=== PATIENT | female | born 1970 | race Caucasian/White ===

== ENCOUNTER 2019-08-12 12:52 | Inpatient (IN) ==
[2019-08-12 13:40] LABS: BE 2.1 mmoll (-3.0-3.0); BLOOD TYPE ARTERIAL; HCO3-(ACT) 26.6 mmoll (20.0-26.0); METHB 1.1 % (0.0-1.5); O2HB 96.5 % (95.0-99.0); PCO2(98.6) 47 mmHg (35-45); PO2(98.6) 124 mmHg (60-100); SAMPLE BLOOD; SAO2 99.5 % (95.0-100.0); THB 12.4 g/dL (11.5-17.4); pH(98.6) 7.38 (7.35-7.45)
[2019-08-12 13:41] LABS: BASO# 0.02 X1000 (0.0-0.2); BASO% 0.2 % (0.0-0.8); HEMATOCRIT 37.2 % (37.0-47.0); HEMOGLOBIN 12.2 g/dL (12.0-16.0); IMM GRAN# 0.01 X1000 (0.0-0.04); IMM GRAN% 0.1 % (0.0-0.5); LYMPH# 0.84 X1000 (1.2-3.4); LYMPH% 10.3 % (20.5-51.1); MCH 28.4 PG (27-31); MCHC 32.8 g/dL (33-37); MCV 86.5 FL (81-99); MONO# 0.63 X1000 (0.11-0.59); MONO% 7.8 % (1.7-9.3); MPV 12.6 FL (7.4-10.4); NEUT# 6.62 X1000 (1.4-6.5); NEUT% 81.6 % (42.2-75.2); PLT 243 X1000 (130-400); RDW 12.7 % (11.5-14.5); WBC 8.12 X1000 (4.8-10.8)
[2019-08-12 13:43] LABS: ALLEN TEST YES; MODALITY CANNULA
--- NOTE | 2019-08-12 13:48 | EKG Report ---
Test Performed on : 08/12/2019 1:07:04 PM Test Reason : od Blood Pressure : / mmHG Vent. Rate : 087 BPM Atrial Rate : 087 BPM P-R Int : 148 ms QRS Dur : 074 ms QT Int : 354 ms P-R-T Axes : 035 013 060 degrees QTc Int : 425 ms Normal sinus rhythm. Normal ECG No previous ECGs available Unconfirmed Result
[2019-08-12 13:53] LABS: ACETAMINOPHEN < 1.2 ug/mL (10-30); AGAP 13; ALBUMIN 4.6 g/dL (3.5-5.0); ALKALINE PHOSPHATASE 86 U/L (32-104); BUN 12 mg/dL (8-22); CALCIUM 9.2 mg/dL (8.8-10.2); CHLORIDE 102 mmol/L (98-107); COSMO 278; CREATININE 0.5 mg/dL (0.5-0.9); ESTIMATED GFR > 60; GLUCOSE 111 mg/dL (70-104); GOT 303 U/L (10-30); GPT 209 U/L (10-36); POTASSIUM 4.6 mmol/L (3.5-5.1); SALICYLATES < 3.00 mg/dL (3-10); SODIUM 139 mmol/L (136-145); TCO2 24 mmol/L (25-35); TOTAL PROTEIN 7.1 g/dL (6.3-8.3); UR AMPHETAMINES QUAL NONE DETECTED (NONE DETECT); UR BARBITUATES QUAL NONE DETECTED (NONE DETECT); UR BENZODIAZEPIN QUAL NONE DETECTED (NONE DETECT); UR CANNABINOIDS QUAL NONE DETECTED (NONE DETECT); UR COCAINE QUAL NONE DETECTED (NONE DETECT); UR METHADONE QUAL NONE DETECTED (NONE DETECT); UR METHAMPHETAMINE QUAL NONE DETECTED (NONE DETECT); UR OPIATES QUAL NONE DETECTED (NONE DETECT); UR OXYCODONE QUAL NONE DETECTED (NONE DETECT); UR PCP QUAL NONE DETECTED (NONE DETECT); UR PROPOXYPHENE QUAL NONE DETECTED (NONE DETECT); UR TCA QUAL PRESUMPTIVE POSITIVE (NONE DETECT)
--- NOTE | 2019-08-12 13:53 | PROVIDER DOCUMENTATION ---
This chart was entered by Aida Galvin Scribe, acting as scribe for Pa Feng MD. [id number] Abuse/Overdose - General Stated Complaint: OVERDOSE Time Seen by Provider: 08/12/19 12:58 Source: patient, EMS (first response) Unable to obtain history due to:: altered Allergies/Adverse Reactions: Allergies Allergy/AdvReac Type Severity Reaction Status Date / Time Penicillins AdvReac ANAPHYLAXIS Verified 08/12/19 20:51 Home Medications: Home Medication List Medication Instructions Recorded Confirmed Last Taken Type Celecoxib [Celebrex] 200 mg PO DAILY 08/12/19 08/12/19 08/11/19 09:00 History Cetirizine HCl [Zyrtec] 10 mg PO DAILY 08/12/19 08/12/19 08/11/19 09:00 History Multivitamin [Multi-Vitamin Daily] 1 ea PO DAILY 08/12/19 08/12/19 08/11/19 09:00 History Omeprazole 40 mg PO DAILY 08/12/19 08/12/19 08/11/19 09:00 History Venlafaxine HCl [Effexor Xr] 75 mg PO DAILY 08/12/19 08/12/19 08/11/19 09:00 History Vitamin B Complex 1 ea PO DAILY 08/12/19 08/12/19 08/11/19 09:00 History - History of Present Illness-Drug/Alcohol Nature of Presenting Problem: 48 yowf presents to the ed with positive suicide attempt at midnight last night. pt left x10 suicide notes, clothes laid out to be buried in, money for lawn care and was found by her and had pill bottles scattered around her. pt reports this is her first time to attempt suicide. per ems pt took x28 Zolpiden 10mg/x50 Tramadol 50mg/unknown amount of Flexril last night at 1200 after having an argument with her This episode of drinking or use began:: last night (1200am) Severity: reports: severe Situational problems related to:: reports: significant other (argument with ) Psychiatric Complaints: reports: depressed, suicidal ideation. denies: homicidal thoughts Associated Symptoms: reports: denies symptoms Any injuries associated with this episode of intoxication?: No Similar Symptoms Previously?: No Recently seen or treated by another doctor?: No - Substance Abuse Substance Use: reports: denies - Overdose Intentional drug overdose?: Yes List substance(s) ingested.: x28 Zolpiden 10mg/x50 Tramadol 50mg/unknown amount of Flexril How did the ingestion/other suicidal act come to attention?: found pt with medication bottles around her and suicide notes x10 Suicide Risk Assessment: organized plan, frightened friends-family. negative: prior attempt, drug or ETOH abuse, rational thought loss (hallucinations), chronic illness Clinician's estimation of suicide risk?: high risk Review of Systems - Adult - REVIEW OF SYSTEMS - ADULT ROS:: limited per condition Constitutional: reports: no symptoms reported Eyes: reports: no symptoms reported Ears, Nose, Mouth & Throat: reports: no symptoms reported Cardiovascular: denies: chest pain, palpitations Respiratory: denies: cough, shortness of breath, wheezing Gastrointestinal: denies: diarrhea, nausea, vomiting Genitourinary: reports: no symptoms reported Musculoskeletal: denies: back pain, neck pain Integumentary: reports: no symptoms reported Neurological: reports: no symptoms reported Psychiatric: reports: see HPI, suicidal thoughts Endocrine: reports: no symptoms reported Hematologic/Lymphatic: reports: no symptoms reported Allergic/Immunologic: reports: no symptoms reported All Other Systems: Reviewed and Negative Past History - Adult - PAST MEDICAL HISTORY-ADULT Review of Records: reports: Old Records Reviewed, Nursing Assessment Review, Medications Reviewed, Social history reviewed & non-contributory. Major Childhood Illnesses: reports: denies history Cardiovascular: reports: denies history Respiratory: reports: denies history Gastrointestinal: reports: denies history Obstetrical/Gynecological: reports: denies history Genitourinary: reports: denies history Musculoskeletal: reports: denies history Neurological: reports: denies history Endocrine/Immune: reports: denies history Other Conditions: reports: denies history - PRIOR SURGERIES/PROCEDURES Surgical/Procedure History: reports: cholecystectomy - IMMUNIZATION STATUS Childhood Immunizations: See Nurse Assessment Flu Vaccine: See Nurse Assessment - FAMILY HISTORY Family History: reviewed, not pertinent - SOCIAL HISTORY Smoking: denies Substance Use: alcohol Alcohol Use Frequency: 3-4 times a week Number of drinks per typical drinking period:: 3-4 drinks Living Situation: family Physical Exam-General - PHYSICAL EXAM-ADULT Exam Limited by: pt is lethargic, slow to answer with +overdose for suicide attempt Initial Vital Signs Reviewed: Yes - CONSTITUTIONAL General Appearance: obese, lethargic, slow to respond - HEAD, EARS, NOSE, MOUTH & THROAT HENMT: moist mucous membranes - NECK Neck: normal inspection - RESPIRATORY Respiratory: chest non-tender, lungs clear, normal breath sounds - CARDIOVASCULAR Cardiovascular: normal peripheral pulses, regular rate, rhythm - CHEST (BREASTS) Chest/Breast: deferred - GASTROINTESTINAL (ABDOMEN) Abdominal Exam: non tender, soft - GENITOURINARY Female Genitalia/Pelvic Exam: deferred Rectal Exam: deferred Hemoccult Exam: deferred - LYMPHATIC Lymphatic: no adenopathy - MUSCULOSKELETAL Back Exam: no CVA tenderness, no vertebral tenderness Extremity: normal capillary refill - SKIN Integumentary: warm/dry, pallor - PSYCHIATRIC Psych/Mental Status: other (slow to answer question with mumbling speech) Progress - PLAN OF CARE/RESULTS Progress/Plan/Lab Results: Orders Category Date Time Status Admit - [facility] Routine AdmDCTranf 08/12/19 17:26 Active NEWS Score >or=5:Order NEWS Bundle S.O. NOW Care 08/12/19 13:39 Completed Neurological Check Q 4-HR ASSESS Care 08/12/19 17:26 Active Vital Signs Order Q 8-HR .ASSESS Care 08/12/19 17:26 Active Z-Document. for Tele Applied ORDERED Care 08/12/19 17:26 Completed US GB < RUQ (LIMITED) [US] Routine Exams 08/12/19 17:26 Completed cxr [CHEST-1 VIEW] [RAD] Stat Exams 08/12/19 13:19 Completed ABG [RESP] Routine Lab 08/12/19 13:22 Completed ACETAMINOPHEN [TDM] Stat Lab 08/12/19 12:59 Completed ACETAMINOPHEN [TDM] Urgent Lab 08/12/19 18:05 Completed ALCOHOL BLOOD Stat Lab 08/12/19 12:59 Completed CBC WITH DIFF [HEME] Routine Lab 08/13/19 04:57 Completed CBC WITH ELECTRONIC DIFF [HEME] Stat Lab 08/12/19 12:59 Completed COMPREHENSIVE METABOLIC PANEL [CHEM] Routine Lab 08/13/19 04:57 Completed COMPREHENSIVE METABOLIC PANEL [CHEM] Stat Lab 08/12/19 12:59 Completed HEPATITIS PROFILE [HH] Routine Lab 08/13/19 04:57 Completed LACTATE, PLASMA [CHEM] Lab 04/12/20 18:05 Completed LACTATE, PLASMA [CHEM] Lab 08/12/19 21:55 Completed LACTATE, PLASMA [CHEM] Q3H Lab 08/12/19 15:14 Completed SALICYLATES [TDM] Stat Lab 08/12/19 12:59 Completed URINE DRUG SCREEN PL Stat Lab 08/12/19 12:59 Completed Dextrose 5%-Water Inj [D5w] 1,000 ml Med 08/12/19 16:30 Active Sodium Bicarbonate 8.4% 150 meq IV 75 mls/hr Haloperidol Lactate [Haldol] Med 08/12/19 17:26 Active 2 mg IV Q4H PRN PRN Ondansetron [Zofran] Med 08/12/19 17:26 Active 4 mg IV Q4H PRN PRN Oxygen Device Routine Oth 08/12/19 17:26 Completed Telemetry [OM.EQ] Routine Oth 08/12/19 17:26 Active EKG [EKG] Stat Ther 08/12/19 13:19 Draft Transfer/Admit Order [TRANSFER] Routine Transfer 08/12/19 15:06 Completed Result Diagrams: 08/14/19 05:20 08/15/19 05:19 - REASSESSMENT Reassessment #1 Time Reassessed: 14:09 (pt is sleeping in bed and will wake to voice if spoken directly to her) Status: unchanged Reassessment #2 Time Reassessed: 15:20 (pt is sitting in bed drinking a dr pepper. pt will answer questions and stays awake longer period of times) Status: improving - EKG 1 Time of EKG reading by physician:: 13:07 EKG Read and Signed by:: Pa Feng EKG Interpretation (*Must complete 3 of following elements*): Normal Rate: 87 Rhythm: NSR [place]: normal QRS: normal FL Interval: normal ST Wave: normal - XRAY 1 XRAY: Bilateral XRAY Study: Chest Impression: See EMR Report (COMMENT: There is no evidence of acute cardiac or pulmonary disease and compared to 05/23/2014 there has been no significant change. IMPRESSION: Normal chest. Electronically signed by Collin Workman 08/12/2019 2:02 PM) - CONSULTS/PCP/HOSPITALIST Notification #1 *Consult/PCP/Hospitalist*: poision control called Time Discussed: 14:17 (watch and place on seizure watch) Reason/Comments: phone consult #2 Consult: hospitalist dr camacho Time Discussed: 15:02 Reason/Comments: OD +SI Consult Disposition: Will see in ED, Admit #3 Consult: hospitalist dr camacho Time Discussed: 15:19 Reason/Comments: phone consult Departure - Departure Date of Disposition Decision: 08/12/19 Time of Disposition Decision: 15:07 DIAGNOSIS: Suicide attempt Overdose Qualifiers: Encounter type: initial encounter Injury intent: intentional self-harm Qualified Code(s): T50.902A - Poisoning by unspecified drugs, medicaments and biological substances, intentional self-harm, initial encounter Disposition: PSYCHIATRIC HOSPITAL/[facility] Certified Medical Emergency: Emergent Condition: Serious - Critical Care Note This patient required my direct & personal management of CC.: No Total Time (mins): 35 Critical Care Statement: This patient required my direct personal management to treat or rule out processes, the absence of which, could potentiallly result in sudden, clinically significant life or limb threatening deterioration. Attestation - Physician/ MARIBELL Attestation Patient care was provided by Advanced Practice Provider:: No The physician spent face to face time with patient:: Yes Advanced Practice Provider documentation review:: Supervising physician onsite and consulted in the evaluation and care of this patient. The physician did have a face to face encounter with the patient. This chart was documented by the indicated scribe, (Aida Galvin Scribe) and accurately reflects the services I performed and decisions made by me, Pa Feng MD, as attested by the provider's signature.
--- NOTE | 2019-08-12 14:04 | Diag Imaging Result Doc PS360 ---
EXAM: CHEST-1 VIEW 08/12/2019 HISTORY: od TECHNIQUE: Erect AP portable at 1348 COMMENT: There is no evidence of acute cardiac or pulmonary disease and compared to 05/23/2014 there has been no significant change. IMPRESSION: Normal chest. Electronically signed by Collin Workman 08/12/2019 2:02 PM
--- NOTE | 2019-08-12 16:45 | HISTORY AND PHYSICAL ---
CHIEF COMPLAINT: Drug overdose. HISTORY OF PRESENT ILLNESS: This is a 48-year-old female. Unclear what her primary medical problems are but she came in with a suicidal gesture. Reportedly took supposedly 50 tramadol which was extended release and 28 Ambien, and an unknown amount of Flexeril. This was around 12 a.m. She left multiple suicide notes, clothes laid out. She was found by her and had the pill bottles scattered around her. This is a first attempt apparently. It is not clear that these medications are her own medications but in any case, the patient came in. She was very lethargic. I do not think she has gotten any reversal medications. Poison Control has been contacted. Recommended monitoring, an EKG, and things of that nature but she will be admitted for drug overdose and suicidal ideation. She is still very lethargic. She is arousable. She is breathing at a stable level but she is still extremely lethargic. She does not have history of depression but she does drink 3 to 4 beers a week. PAST MEDICAL HISTORY: I do not think she has any major issues. PAST SURGICAL HISTORY: She reports cholecystectomy, she reports a cervical neck surgery. SOCIAL HISTORY: No tobacco. Again, ethanol about 3 to 4 drinks a week. She lives with her with whom she had recently argued. ALLERGIES: No known drug allergies. MEDICATIONS: None recorded. REVIEW OF SYSTEMS: Review of systems limited but otherwise negative. PHYSICAL EXAMINATION: VITAL SIGNS: Blood pressure 127/93, heart rate of 81, respiratory rate 15, temperature 97.7 degrees, 97% on 2 L. GENERAL: A well-developed female in no acute distress. HEAD, EYES, EARS, NOSE, AND THROAT: Head examination was normocephalic and atraumatic. Eye Examination: Pupils equal, round, reactive to light. Extraocular movements were intact. Ears, Nose, and Throat Examination: She had moist mucous membranes. NECK EXAMINATION: Supple. CARDIOVASCULAR: Regular rate and rhythm. PULMONARY: Bilateral breath sounds clear to auscultation. GI: Soft, nontender, nondistended. Bowel sounds were positive. NEUROLOGIC: Examination was limited but there were no issues. LABORATORY DATA: White count 8, hemoglobin and hematocrit 12 and 37, platelets 243,000. PH 7.38, pCO2 of 47, PaO2 of 124. AST and ALT of 303 and 209. Tricyclics positive. ASSESSMENT: 1. This is a 48-year-old female coming in with suicidal gesture and drug overdose with acute hepatitis or transaminitis following drug overdose. We will continue to monitor and see how she does. Repeat her labs in the morning and monitor closely. 2. Elevated liver enzymes which may be a toxicity issue. All her liver tests and everything are negative. We will check a hepatitis screen, and trend her enzymes and repeat them in a little bit. 3. Tricyclic overdose. We will put her on a bicarbonate drip to increase alkalinity of the urine and help with excretion of TCA. 4. Suicidal gesture. We will get evaluation by psychiatry once she stabilizes. cc: Aj Lutz MD
[2019-08-12] MEDS ORDERED: D5W 1,000 ML ONE (17:03)
[2019-08-12] MEDS ORDERED: SODIUM BICARBONATE 8.4% ONE ×2 (17:05→17:26)
[2019-08-12] MEDS ORDERED: ZOFRAN IV PRN (17:26)
[2019-08-12] MEDS ORDERED: HALDOL IV PRN (17:26)
[2019-08-12] MEDS: SODIUM BICARBONATE 8.4% 150 MEQ in D5W 1,000 ML IV SCH (17:45)
[2019-08-12 20:01] LABS: URINE SOURCE CATH
[2019-08-12 20:03] LABS: BILIRUBIN URINE NEGATIVE (NEGATIVE); BLOOD URINE NEGATIVE (NEGATIVE); COLOR YELLOW; GLUCOSE URINE NEGATIVE (NEGATIVE); KETONE URINE NEGATIVE (NEGATIVE); LEUKOCYTES URINE NEGATIVE (NEGATIVE); NITRITE URINE NEGATIVE (NEGATIVE); PH URINE 5.5; PROTEIN URINE NEGATIVE (NEGATIVE); SP GRAVITY URINE 1.023; TURBIDITY URINE CLEAR (CLEAR); UROBILINOGEN URINE NORMAL (NORMAL)
[2019-08-12 20:04] LABS: UR EPITHELIAL CELLS <10 /HPF (<10); URINE BACTERIA NEGATIVE /HPF; URINE RBC <10 /HPF (<10); URINE WBC <10 /HPF (<10)
--- NOTE | 2019-08-12 20:17 | Diag Imaging Result Doc PS360 ---
EXAM: US GB < RUQ (LIMITED) 08/12/2019 HISTORY: elevated liver enzymes TECHNIQUE: Right upper quadrant ultrasound COMMENT: The visualized portions of the head and body of the pancreas are within normal limits. The aorta is normal in caliber where it is visible. There is very poor detail seen in the liver. There is antegrade flow in the portal vein. The right kidney is without evidence of hydronephrosis or mass. The gallbladder is surgically absent. There is no evidence of biliary dilatation the common bile duct measuring less than 4 mm. IMPRESSION: No definite evidence of acute disease. Electronically signed by Collin Workman 08/12/2019 8:15 PM
[2019-08-12 22:28] LABS: INR 0.97; PROTIME 13.4 Seconds (11.0-16.0)
[2019-08-12 22:31] LABS: CK INDEX 1.1 (0.0-2.5); CK-MB 30.89 ng/mL (0.0-5.0)
[2019-08-12] MEDS ORDERED: ACETADOTE IV ONE ×2 (23:17)
[2019-08-12] MEDS ORDERED: D5W IV ONE ×2 (23:17)
[2019-08-13] MEDS ORDERED: D5W IV ONE ×3 (00:30)
[2019-08-13] MEDS ORDERED: ACETADOTE IV ONE ×3 (00:30)
[2019-08-13 05:50] LABS: AGAP 9; ALBUMIN 3.6 g/dL (3.5-5.0); ALKALINE PHOSPHATASE 76 U/L (32-104); BUN 11 mg/dL (8-22); CALCIUM 8.5 mg/dL (8.8-10.2); CHLORIDE 99 mmol/L (98-107); COSMO 275; CREATININE 0.6 mg/dL (0.5-0.9); ESTIMATED GFR > 60; GLUCOSE 105 mg/dL (70-104); GOT 169 U/L (10-30); GPT 142 U/L (10-36); POTASSIUM 3.3 mmol/L (3.5-5.1); SODIUM 138 mmol/L (136-145); TCO2 30 mmol/L (25-35)
[2019-08-13 05:57] LABS: BASO# 0.02 X1000 (0.0-0.2); BASO% 0.3 % (0.0-0.8); EOS# 0.06 X1000 (0.0-0.7); EOS% 0.8 % (0.0-10.0); HEMATOCRIT 34.8 % (37.0-47.0); HEMOGLOBIN 11.1 g/dL (12.0-16.0); IMM GRAN# 0.01 X1000 (0.0-0.04); IMM GRAN% 0.1 % (0.0-0.5); LYMPH# 1.71 X1000 (1.2-3.4); LYMPH% 24.2 % (20.5-51.1); MCH 28.6 PG (27-31); MCHC 31.9 g/dL (33-37); MCV 89.7 FL (81-99); MONO# 0.69 X1000 (0.11-0.59); MONO% 9.7 % (1.7-9.3); MPV 12.6 FL (7.4-10.4); NEUT# 4.59 X1000 (1.4-6.5); NEUT% 64.9 % (42.2-75.2); PLT 213 X1000 (130-400); RBC 3.88 XMIL (4.2-5.4); RDW 12.9 % (11.5-14.5); WBC 7.08 X1000 (4.8-10.8)
[2019-08-13] MEDS: SODIUM BICARBONATE 8.4% 150 MEQ in D5W 1,000 ML IV SCH ×2 (08:28→23:23)
[2019-08-13] MEDS ORDERED: ATIVAN IV PRN (11:57)
--- NOTE | 2019-08-13 12:14 | PROGRESS NOTE ---
DATE: 08/13/2019 SUBJECTIVE: Patient has no major complaints. OBJECTIVE: Vital Signs: Blood pressure 112/42, heart rate of 68, respiratory rate of 18, temperature 98.3 degrees, satting 98% on 2 L. Cardiovascular: Regular rate and rhythm. Pulmonary: Bilateral breath sounds. Clear to auscultation. GI: Soft, nontender, nondistended. Bowel sounds are positive. LABORATORY DATA: White count 7, hemoglobin and hematocrit 11 and 34, platelets 213. Potassium 3.3. Her AST and ALT are down to 169 and 142. Presumably this is related to Ultram or tramadol toxicity. It is a little unclear, but we will see how things go. PROBLEM LIST: 1. Drug overdose. Mentally, she has improved. Her liver enzymes are improving. We will continue to monitor today. 2. Rhabdomyolysis. We will continue treatment with sodium bicarbonate and follow. 3. Elevated liver enzymes, acute hepatitis, likely related to toxicity from Ultram and possibly cyclobenzaprine. We will continue to monitor. 4. Disposition: She is stable. She will need psychiatric evaluation for suicidality. She may require inpatient psychiatric treatment. cc: Aj Lutz MD
[2019-08-13] MEDS: EFFEXOR XR PO SCH (12:36)
[2019-08-14 06:05] LABS: HEMATOCRIT 35.7 % (37.0-47.0); HEMOGLOBIN 11.3 g/dL (12.0-16.0); MCH 28.2 PG (27-31); MCHC 31.7 g/dL (33-37); RBC 4.01 XMIL (4.2-5.4); RDW 12.7 % (11.5-14.5); WBC 5.62 X1000 (4.8-10.8)
[2019-08-14] MEDS: PRILOSEC PO SCH (06:07)
[2019-08-14 06:36] LABS: AGAP 9; ALBUMIN 3.6 g/dL (3.5-5.0); ALKALINE PHOSPHATASE 71 U/L (32-104); BUN 5 mg/dL (8-22); CALCIUM 8.7 mg/dL (8.8-10.2); CHLORIDE 98 mmol/L (98-107); CK TOTAL 1341 U/L (24-173); COSMO 274; CREATININE 0.5 mg/dL (0.5-0.9); ESTIMATED GFR > 60; GLUCOSE 109 mg/dL (70-104); GOT 86 U/L (10-30); GPT 97 U/L (10-36); POTASSIUM 3.3 mmol/L (3.5-5.1); SODIUM 138 mmol/L (136-145); TCO2 31 mmol/L (25-35); TOTAL PROTEIN 6.3 g/dL (6.3-8.3)
[2019-08-14] MEDS ORDERED: KLOR-CON PO ONE (07:21)
[2019-08-14] MEDS: THERA M PLUS PO SCH (08:18)
[2019-08-14] MEDS: VICON-C PO SCH (08:18)
[2019-08-14] MEDS: EFFEXOR XR PO SCH (08:18)
[2019-08-14] MEDS: CELEBREX PO SCH (08:19)
[2019-08-14] MEDS: ZYRTEC PO SCH (08:19)
[2019-08-14 11:18] LABS: HEPATITIS PROFILE ACUTE SEE COMMENTS
[2019-08-14] MEDS: SODIUM BICARBONATE 8.4% 150 MEQ in D5W 1,000 ML IV SCH (14:51)
--- NOTE | 2019-08-14 21:49 | PROGRESS NOTE ---
DATE: 08/14/2019 SUBJECTIVE: Patient with no complaints. She is able to ambulate without difficulty. She is awake, alert. EXAM: Temperature 98, pulse 67, respiratory 20, BP 125/56.HEENT: Normocephalic. Neck: Supple. Cardiovascular: Regular rate. Chest: Clear. Abdomen: Soft. Extremities: Moves all extremities. ASSESSMENT: 1. Rhabdomyolysis. CPK is down to 1341. 2. Hypokalemia. Will replace. 3. Anemia of chronic disease, stable. 4. Drug overdose. 5. Elevated enzymes. PLAN: We will continue patient in the hospital. Hopefully, CPK will improve tomorrow. If so can consult [facility] for further assistance. cc: Bogdan Alonzo MD
[2019-08-15] MEDS: PRILOSEC PO SCH (06:06)
[2019-08-15] MEDS: SODIUM BICARBONATE 8.4% 150 MEQ in D5W 1,000 ML IV SCH (06:06)
[2019-08-15 06:38] LABS: AGAP 12; ALBUMIN 3.7 g/dL (3.5-5.0); ALKALINE PHOSPHATASE 73 U/L (32-104); BUN 6 mg/dL (8-22); CALCIUM 9.3 mg/dL (8.8-10.2); CHLORIDE 102 mmol/L (98-107); COSMO 277; CREATININE 0.6 mg/dL (0.5-0.9); ESTIMATED GFR > 60; GLUCOSE 98 mg/dL (70-104); GOT 61 U/L (10-30); GPT 74 U/L (10-36); POTASSIUM 3.8 mmol/L (3.5-5.1); SODIUM 140 mmol/L (136-145); TCO2 26 mmol/L (25-35); TOTAL PROTEIN 6.6 g/dL (6.3-8.3)
[2019-08-15 07:20] VITALS: BP 134/65
[2019-08-15 07:40] LABS: CK INDEX 0.3 (0.0-2.5); CK-MB 2.05 ng/mL (0.0-5.0)
[2019-08-15] MEDS: THERA M PLUS PO SCH (08:12)
[2019-08-15] MEDS: VICON-C PO SCH (08:12)
[2019-08-15] MEDS: CELEBREX PO SCH (08:12)
[2019-08-15] MEDS: ZYRTEC PO SCH (08:12)
[2019-08-15] MEDS: EFFEXOR XR PO SCH (08:12)
--- NOTE | 2019-08-15 20:56 | PROGRESS NOTE ---
DATE: 08/15/2019 SUBJECTIVE: Patient has no new complaints. States that she wants to go home. PHYSICAL EXAMINATION: Vital Signs: Reviewed. She is afebrile. Pulse in the 60s, respiratory 20, BP stable at 120s/60s. General: Patient is awake, pleasant, in no distress. HEENT: Normocephalic. Neck: Supple. Cardiovascular: Regular rate. Chest: Clear. Abdomen: Soft. Extremities: Moves all extremities. Neurologic: No changes. ASSESSMENT: 1. Acute rhabdomyolysis, CPK initially 2569 and currently down to 800, resolved. 2. Hypokalemia, resolved. 3. Drug overdose, resolved. 4. Acute hepatitis, improved. PLAN: We are going to continue patient in the hospital. Consult [facility] as patient certainly will need psychiatric evaluation prior to discharge. cc: Bogdan Alonzo MD
--- NOTE | 2019-08-17 04:35 | DISCHARGE SUMMARY ---
ADMISSION DATE: 08/12/2019 DISCHARGE DATE: 08/15/2019 DISCHARGE DIAGNOSES: 1. Rhabdomyolysis, resolved. 2. Acute suicide attempt. 3. Elevated transaminases. 4. Hypokalemia. CONSULTATIONS: [facility]. PROCEDURES: None. BRIEF HOSPITAL COURSE: The patient is a 48-year-old female presented to the hospital after a suicide attempt. She was noted to have a drug overdose. She currently is awake, alert, oriented. She is in no distress. CPK was elevated at 2869. She was placed on fluids and a bicarb drip. By the next day it was down to 1341, today it is down below 800. She is having no new complaints. States overall she is feeling better. [facility] was consulted and did feel that she needed inpatient treatment for her depression and suicide attempt, although they did not have a bed. Therefore, a bed was found at [facility]. DISPOSITION: Patient will be discharged to [facility]. She needs no further treatment for her rhabdomyolysis as this will continue to resolve as she drinks fluids. TIME SPENT: Greater than 30 minutes was spent in total care. cc: Bogdan Alonzo MD
== END 2019-08-15 18:10 | DRG 918 ==
LOC: P.ED 12:52 → P.EDIPHOLD 16:42 → SUATTDRO 16:42 → P.MEDSURG 19:06
PROVIDERS: ATTEND Family Medicine